=== PATIENT | male | born 1970 | race African-American/Black ===

== ENCOUNTER 2016-06-10 08:03 | Day surgery (SDC) | payer OTHER ==
[2016-06-05 12:31] VITALS: BMI 23.6
--- NOTE | 2016-06-10 07:57 | HP ---
History & Physical Update - History History: No Change - Physical Physical: No Change - Assessment Assessment: No Change (46 yo M presents for planned lumbar laminectomy with Dr. Pickard. No changes to H&P in paper chart.) - Plan Plan: No Change
[~2016-06-10 08:03] MED LIST: oxyCODONE HCL 10 MG SUSTAINED ACTING TABLET PO STA
[2016-06-10] MEDS ORDERED: SUCCINYLCHOLINE CHLORIDE 200 MG/10 ML VIAL ONE (09:14)
[2016-06-10] MEDS ORDERED: DEXAMETHASONE SOD PHOSPHATE 4 MG/1 ML VIAL ONE (09:24)
[2016-06-10] MEDS ORDERED: ONDANSETRON 4 MG/2 ML VIAL ONE (09:24)
[2016-06-10] MEDS ORDERED: methylPREDNISolone ACET (DEPO) 40 MG/1 ML VIAL ONE (10:55)
[2016-06-10] MEDS ORDERED: BUPIVACAINE HCL/PF 2.5 MG/ML - 30 ML VIAL IJ ONE (10:55)
[2016-06-10] MEDS ORDERED: GUM MASTIC/STORAX/MSAL/ALCOHOL 1 DRP DROPSBTL MC ONE (10:55)
[2016-06-10] MEDS ORDERED: LIDOCAINE 1%-EPI 1:100,000 30 ML MDV IJ ONE (10:55)
[2016-06-10] MEDS ORDERED: THROMBIN (BOVINE) 5,000 UNIT VIAL TP ONE ×2 (10:55→12:35)
[2016-06-10] MEDS ORDERED: MIDAZOLAM HCL 2 MG/2 ML SINGLE DOSE VIAL ONE (11:07)
[2016-06-10] MEDS ORDERED: BUPIVACAINE HCL/PF 0.5% (5MG/ML) 10 ML VIAL ONE (11:10)
[2016-06-10] MEDS ORDERED: PROPOFOL 20 ML ONE (11:44)
[2016-06-10] MEDS ORDERED: ceFAZolin SODIUM 1 GM VIAL ONE (11:47)
[2016-06-10] MEDS ORDERED: LIDOCAINE 1%/EPI 1:100000 (50 ML MULTI DOSE VIAL) INF ONE (12:34)
[2016-06-10] MEDS ORDERED: methylPREDNISolone ACET (DEPO) 40 MG/1 ML VIAL IM ONE (12:35)
[2016-06-10] MEDS ORDERED: BUPIVACAINE HCL/PF 0.25% (2.5MG/ML) 10 ML VIAL IJ ONE (12:36)
--- NOTE | 2016-06-10 13:24 | OP ---
Operative Note - Note: Operative Date: 06/10/16 Pre-Operative Diagnosis: spinal stenosis, lumbar radiculopathy Operation: lumbar laminectomy L4-5 (unilateral), discectomy Post-Operative Diagnosis: Same as Pre-op Surgeon: Augustine Pickard C D Stripper: Carmen Saha Anesthesia: Spinal Estimated Blood Loss (mls): 20 Fluid Volume Replaced (mls): 1,300 Operative Report Dictated: Yes
--- NOTE | 2016-06-10 13:27 | SURG ---
Surgery Equipment Validation Specialist Note Equipment Validation Specialist: Carmen Saha PA-C Date of Service: 06/10/16 Diagnosis: spinal stenosis, lumbar radiculopathy Procedure: lumbar laminectomy L4-5 (unilateral), discectomy I was present for the entirety of the operative procedure. For further detail, please refer to operative report. Visit type - Case Type Case Type: Scheduled Admission - Emergency Emergency Visit: No - New patient This patient is new to me today: Yes Date on this admission: 06/10/16 - Critical Care Critical Care patient: No
[2016-06-10 13:37] VITALS: TEMP 97.7
[2016-06-10] MEDS ORDERED: oxyCODONE HCL 5 MG TABLET PO PRN (14:05)
[2016-06-10] MEDS ORDERED: LACTATED RINGERS SOLUTION 1,000 ML IV SCH (14:15)
[2016-06-10] MEDS ORDERED: ONDANSETRON 4 MG/2 ML VIAL IVPUSH PRN (14:25)
[2016-06-10 17:06] VITALS: BP 147/74; PULSE 60
--- NOTE | 2016-06-10 22:18 | OP ---
DATE OF OPERATION: 06/10/2016 PREOPERATIVE DIAGNOSIS: L4-5 stenosis. POSTOPERATIVE DIAGNOSIS: L4-5 stenosis. PROCEDURE PERFORMED: Left L4-5 hemilaminectomy. SURGEON: Augustine Pickard MD LIQUID FERTILIZER SERVICER: ODELL Leiva ESTIMATED BLOOD LOSS: 50 mL. IV FLUIDS: Per anesthesia. ANESTHESIA: Spinal. COMPLICATIONS: There were none. DISPOSITION: Patient brought to the PACU in stable condition. INDICATION FOR SURGERY: The patient is a 46-year-old gentleman who has been suffering from pain from his back down his left leg. X-rays and MRI were completed, which noted that he had spinal stenosis at L4-5 due to a herniated disk. He had gone through an exhaustive course of treatment for this which included medications, physical therapy as well as injections. Unfortunately, his pain continued to persist despite all this. At this point, risks, benefits, and alternatives were discussed and the patient consented to surgery. OPERATIVE NOTE: Patient was brought to the operating room by anesthesia staff. After appropriate patient identification was performed, spinal anesthesia was given. Appropriate anesthetic lines were placed. He was placed prone onto the Allen frame, with all areas of bony prominences well padded at this time. Two needles were placed into his back to jennie off the L4-5 level. An x-ray was taken to confirm this. The needle was removed and 10 mL of lidocaine with epinephrine was injected into his back at this time. His back was prepped and draped in a sterile manner. At this point, time-out was completed. An incision was made from the top of L4 down to the bottom of L5. Dissection was carried down to the fascia. The fascia was then opened up on the left-hand side and appropriate retractor blades were then placed in. A spinal needle was placed onto the L4 lamina to jennie off the L4-5 level. An x-ray was taken to confirm this. The needle was removed and the microscope was brought in. At this point a portion of the L4 and L5 lamina were removed. The flavum was identified, it was removed. Portions of the inferior superior facets were removed to complete a foraminotomy. The nerve root was mobilized medially. A disk herniation was noted. It was removed at this time. By the end of the procedure, the L5 nerve root appeared to be well decompressed. All bleeding was well controlled at this time. Steroid was placed over the nerve root, FloSeal was placed over that. The fascia was closed with a number 1 Vicryl suture. The subcutaneous tissues were closed with 2-0 Vicryl suture. Skin was closed with 3-0 Monocryl suture. Dermabond was applied, Steri-Strips were applied, a sterile dressing was applied. The patient was placed supine on the OR bed and brought to the PACU in stable condition. AUGUSTINE PICKARD M.D. [id number]
--- NOTE | 2016-06-13 12:22 | PATH ---
Surgical Pathology Report Patient Name: ISRRAEL WILLIAM [facility]. Rec. #: [id number] /Age/Gender: 1970 (Age: 46) / M Account: [id number] Location: [facility] AMBULATORY Taken: 06/10/2016 Received: 06/10/2016 Reported: 06/13/2016 Physicians: Augustine Pickard M.D. Specimen(s) Received L4-L5 DISC Clinical History Spinal stenosis Final Diagnosis L4-L5 DISC, LAMINECTOMY: CARTILAGE WITH DEGENERATIVE CHANGES. Electronically Signed Radha Freeman M.D. Gross Description Received in formalin labeled "L4-L5 disc," is a 1.8 x 1.4 x 0.3 cm aggregate of gaines fragments of fibrocartilaginous tissue. The specimen is submitted in toto in one cassette. 06/11/201606/11/2016
== END 2016-06-10 17:45 | disposition home or self-care (01) ==
LOC: FASU 08:03
PROVIDERS: ATTEND Orthopaedic Surgery Orthopaedic Surgery of the Spine
PROC: 01NB0ZZ Release Lumbar Nerve, Open Approach (ICD-10-PCS; principal; 2016-06-10 12:14)
DX: M48.06 Spinal stenosis, lumbar region (principal)
CPT/HCPCS: 72100-TC; 76000-TC; 88304-TC; 94760